=== PATIENT | male | born 1960 | race Caucasian/White ===

== ENCOUNTER 2025-04-13 10:24 | Emergency (ER) | payer SELFPAY ==
[2025-04-13 10:30] VITALS: BP 171/99
--- NOTE | 2025-04-13 13:04 | ED.GENMED ---
History of Present Illness
General
Chief Complaint: Musculo-Skeletal Complaint
Time Seen by Provider: 04/13/25 12:27
History of Present Illness
History of Present Illness:
65-year-old male presents to the emergency department for evaluation of left lower chest wall pain after slipping and falling ice this morning. Pain is pleuritic in nature. Did not take any medications prior to arrival. No hemoptysis or abdominal
pain
Review of Systems
Review of Systems
Allergies reviewed?: Yes
All Other Systems: ROS reviewed and negative except as documented in HPI and ROS
Phy Exam
Physical Exam
Physical Exam:
GEN: Well appearing, NAD, WDWN
HEENT: Oral mucosa moist, no scleral icterus
Cardiac: Regular rate
Lung: No respiratory distress, no tachypnea
Chest: Exquisite tenderness to the left lower chest wall in the anterior axillary line, no palpable deformity, no flail segment
MSK: No gross deformity or injuries
Skin: Good color, no pallor or jaundice, no rashes
Neuro: AO x3, moves all extremities freely
Psych: Calm, cooperative
Course
Orders/Labs/Results
Orders:
Orders
04/13/25 10:31
CR Ribs-left 3 Vw W/pa Chest Urgent
Comment:
Reason For Exam: Trauma
04/13/25 12:42
Oxycodone/Acetaminophen [Percocet 5/325] 1 tablet PO NOW STA
04/13/25 12:45
Lidocaine [Lidocaine 4% Patch] 1 patch TOPICAL DAILY
Apply Lidocaine patch(s) to:: L lower chest wall
Vital Signs
Initial and Last Documented VS:
Initial Vital Signs
Temp Pulse Resp BP Pulse Ox
98.5 F 97 16 171/99 98
04/13/25 10:30 04/13/25 10:30 04/13/25 10:30 04/13/25 10:30 04/13/25 10:30
Last Documented Vital Signs
Temp Pulse Resp BP Pulse Ox
98.5 F 88 17 164/97 98
04/13/25 13:27 04/13/25 13:27 04/13/25 13:27 04/13/25 13:27 04/13/25 13:27
MDM/Problems Addressed
MDM/Problems Addressed:
X-ray suggestive of 10th and 11th rib fractures, no evidence for hemopneumothorax. Discussed supportive care
*Pulse Oximetry
SaO2: 98
Oxygen Mode of Delivery: Room air
Patient hypoxic: no
*Critical Care Note
Total Time (30-74mins, 75-104mins- exclusive of procedures): Not Applicable
ED Attending Note
-
Portions of this chart may have been created with voice recognition software.� Occasional wrong word or��sound alike� substitutions may have occurred due to the inherent limitations of voice recognition software.
Discharge Plan
Departure
Patient Disposition: Home (Routine Discharge)
Date of Disposition: 04/13/25
Time of Disposition: 13:05
Patient with high blood pressure during this ER visit?: No
Discharge Problem:
Left rib fracture
Instructions: How to use an incentive spirometer, Rib fracture or bruised rib - ED (DC)
Prescriptions:
New
oxycodone-acetaminophen [Percocet] 5-325 mg tablet
1 tab PO Q6HPRN PRN (Reason: pain) Qty: 10 0RF
Referrals:
NONE,* [Family Provider, Internal Medicine]
Stand Alone Forms: Return to Work
Interventions
Interventions:
*General Assessment Last Done: 04/13/25 13:27
*Neglect/Abuse Screening Last Done: 04/13/25 13:27
*ED COVID-19 Vaccine History Last Done: 04/13/25 13:27
*ED Influenza Vaccine History Last Done: 04/13/25 13:27
[facility] Risk Assessment Tool Last Done: 04/13/25 13:27
*Risk Screen - Suicide (C-SSRS) Last Done: 04/13/25 13:27
*Nursing Disposition Last Done: 04/13/25 13:27
ED-Musculoskeletal Assessment Last Done: 04/13/25 13:05
Discharge Date and Time
Discharge Date/Time: 04/13/25 13:30
Print Language: [id number]
[2025-04-13] MEDS: LIDOCAINE 4% PATCH 1 PATCH TOPICAL (13:23)
[2025-04-13] MEDS: PERCOCET 5/325 1 TABLET PO (13:24)
[2025-04-13 13:27] VITALS: BP 164/97
== END 2025-04-13 13:30 | disposition home or self-care (01) ==
LOC: EMR 10:24
PROVIDERS: EMERGENCY PHYSICIAN Emergency Medicine
DX: S22.32XA Fracture of one rib, left side, initial encounter for closed fracture (principal); W01.0XXA Fall on same level from slipping, tripping and stumbling without subsequent striking against object, initial encounter
CPT/HCPCS: 99283; 71101